=== PATIENT | female | born 1965 | race Caucasian/White ===

== ENCOUNTER 2016-10-10 15:43 | Emergency (ER) ==
[2016-10-10 15:57] VITALS: BP 127/84; TEMP 99.2; BMI 27.3
[2016-10-10] MEDS ORDERED: NORCO 7.5-325 PO STA (16:10)
[2016-10-10] MEDS ORDERED: CLEOCIN PO STA (16:11)
[2016-10-10] MEDS ORDERED: BACTROBAN TP STA (16:12)
--- NOTE | 2016-10-10 16:15 | ED.PDOC ---
General ED Provider: Dr. ONELIA DE LA ROSA-ER Chief Complaint: Finger Pain/Injury Stated Complaint: my fingernail is infected Time Seen by Physician: 15:50 Mode of Arrival: Walk-In Information Source: Patient, Family Exam Limitations: No limitations Primary Care Provider: CRISTINE BURK Nursing and Triage Documentation Reviewed and Agree: Yes Skin Complaint Exam - Skin/Soft Tissue Complaint/Exam Onset/Duration: several days Symptoms Are: Still present Timing: Constant Initial Severity: Mild Current Severity: Moderate Location: left index fingernail Character: Reports: Redness, Swelling, Raised, Painful Aggravating: Reports: Touch Alleviating: Reports: None Associated Signs and Symptoms: Reports: Tenderness, Red streaks. Denies: Fever , Chills, Itching, Drainage, Bruising, Joint swelling Related History: Reports: Similar episode Related Surgical History: Reports: None Recent Exposure to Others w/Similar Symptoms: No Skin Findings: Present: Erythema, Induration, Pustules Joint Tenderness Present: No Differential Diagnoses: Other (paronychia) Review of Systems - Review Of Systems Constitutional: Reports: No symptoms Eyes: Reports: No symptoms Ears, Nose, Mouth, Throat: Reports: No symptoms Respiratory: Reports: No symptoms Cardiac: Reports: No symptoms GI: Reports: No symptoms : Reports: No symptoms Musculoskeletal: Reports: No symptoms Skin: Reports: Lumps Neurological: Reports: No symptoms Endocrine: Reports: No symptoms Hematologic/Lymphatic: Reports: No symptoms All Other Systems: Reviewed and Negative Past Medical History - Past Medical History Endocrine: Reports: Unknown Cardiovascular: Reports: Unknown Respiratory: Reports: Unknown Hematological: Reports: Unknown Gastrointestinal: Reports: Unknown Genitourinary: Reports: Unknown Neuro/Psych: Reports: Unknown Musculoskeletal: Reports: Unknown Cancer: Reports: Unknown Last Menstrual Period: 09/18 - Surgical History General Surgical History: Reports: Unknown - Family History Family History: Reports: Unknown - Social History Smoking Status: Never smoker Hx Substance Use: No Alcohol Screening: None Lives: With family Physical Exam - Physical Exam Appearance: Well-appearing, No pain distress, Well-nourished Pain Distress: Mild Eyes: DARIA, EOMI, Conjunctiva clear ENT: Ears normal, Nose normal, Oropharynx normal Neck: Supple Respiratory: Airway patent, Breath sounds clear, Breath sounds equal, Respirations nonlabored Cardiovascular: RRR, Pulses normal, No rub, No murmur GI/: Soft, Nontender, No masses, Bowel sounds normal, No Organomegaly Musculoskeletal: Normal strength, ROM intact, No edema, No calf tenderness Skin: Warm Neurological: Sensation intact, Motor intact, Reflexes intact, Cranial nerves intact, Alert, Oriented Psychiatric: Affect appropriate, Mood appropriate Procedures - Incision and Drainage Site: left index finger Instrument Used: 15 Blade I & D Procedure: Yes: Betadine Prep, Hibiclens Prep, Sterile drapes applied, Sterile dressing applied Lidocaine Used: No Type of Drainage: Present: Pus, Blood Irrigated: No Progress: patient tolerated procedure well--1.5cc of purulent material removed with relief in symptoms--sterile dressing applied Re-Evaluation - Re-Evaluation Time of Re-Evaluation: 16:18 Status: Improved Vital Signs Stable: Yes Pain Level: 1 Appearance: NAD Lungs: Clear Skin: Warm and Dry Neuro: Alert and Oriented X3 CV: RRR Critical Care Note - Critical Care Note Total Time (mins): 0 Course - Course Orders, Labs, Meds: Orders Category Date Time Status Wound care [ED WOUND CARE] .ONCE EMERGENCY 10/10/16 16:12 Active WOUND CULTURE Stat LAB 10/10/16 16:11 Uncollected Clindamycin HCl [Cleocin] MEDS 10/10/16 16:11 Discontinued 150 mg PO ONCE STA Hydrocodone Bit/Acetaminophen [[place] 7.5-325] MEDS 10/10/16 16:10 Discontinued 1 tab PO ONCE STA Mupirocin [Bactroban] MEDS 10/10/16 16:12 Stat 1 applic TP ONCE STA Medications Discontinued Medications Generic Name Dose Route Start Last Admin Trade Name Jenaroq PRN Reason Stop Dose Admin Acetaminophen/Hydrocodone Bitart 1 tab 10/10/16 16:10 10/10/16 16:16 [place] 7.5-325 PO 10/10/16 16:11 1 tab ONCE STA Administration Clindamycin HCl 150 mg 10/10/16 16:11 10/10/16 16:16 Cleocin PO 10/10/16 16:12 150 mg ONCE STA Administration Mupirocin 1 applic 10/10/16 16:12 10/10/16 16:16 Bactroban TP 10/10/16 16:13 1 applic ONCE STA Administration Vital Signs: Temp Pulse Resp BP Pulse Ox 10/10/16 15:44 99.2 F 103 H 20 127/84 98 Departure - Departure Time of Disposition: 16:18 Disposition: HOME SELF-CARE Discharge Problem: Paronychia of finger Qualifiers: Laterality: left Qualifier Code: (L03.012) Cellulitis of left finger Instructions: Paronychia (ED) Condition: Good Pt referred to PMD for follow-up: Yes Additional Instructions: wash with soap and water twice and apply bactroban ointment till healed-- clindamycin 150mg tid x 7 days--norco 5mg q 4hrs prn pain #10---f/u with pcp next week--return here if any red streaking or fever Allergies/Adverse Reactions: Allergies Penicillins Adverse Reaction (Verified 10/10/16 15:56) Home Medications: Ambulatory Orders Aspirin [Aspirin EC] 325 mg PO DAILY 10/10/16 Buspirone HCl 5 mg PO BID 10/10/16 Cholecalciferol (Vitamin D3) [Vitamin D] 50,000 units PO WEEKLY 10/10/16 Clopidogrel Bisulfate [Clopidogrel] 75 mg PO DAILY 10/10/16 Gabapentin 100 mg PO DAILY 10/10/16 Levetiracetam [Keppra] 1,000 mg PO BID 10/10/16 Simvastatin 20 mg PO DAILY 10/10/16 Zonisamide 100 mg PO DAILY 10/10/16 Disposition Discussed With: Patient, Family
== END 2016-10-10 16:38 | disposition home or self-care (01) ==
LOC: ED 15:43
DX: L03.012 Cellulitis of left finger (principal)
CPT/HCPCS: 87070; 99283

== ENCOUNTER 2016-10-29 16:04 | Outpatient (CLI) ==
[2016-10-29 17:59] LABS: BASOPHILS % (AUTO) 0.7 % (0.0-3.0); EOSINOPHILS # (AUTO) 0.8 K/ul (0.0-0.7); HEMATOCRIT 38.6 % (37.0-47.0); HEMOGLOBIN 12.1 g/dl (12.0-16.0); IMMATURE GRANULOCYTE % (AUTO) 0.2 % (0.0-5.0); LYMPHOCYTES # (AUTO) 1.8 K/uL (0.60-3.4); LYMPHOCYTES % (AUTO) 30.6 (10.0-50.0); MEAN CORPUSCULAR HEMOGLOBIN 25.7 pg (27.0-31.0); MEAN CORPUSCULAR HGB CONC 31.3 (31.8-35.4); MEAN CORPUSCULAR VOLUME 82.1 fl (81.0-99.0); MONOCYTES # (AUTO) 0.6 K/uL (0.4-2.0); MONOCYTES % (AUTO) 10.1 (0-10); NEUTROPHILS # (AUTO) 2.7 K/ul (2.0-6.9); NEUTROPHILS % (AUTO) 45.4; PLATELET COUNT 217 10^3/uL (140-440); WHITE BLOOD COUNT 5.94 K/ul (4.6-10.2)
[2016-10-29 18:20] LABS: BILIRUBIN,URINE Negative (NEGATIVE); KETONES,URINE Negative (NEGATIVE); LEUKOCYTE ESTERASE ,URINE 1+ (NEGATIVE); NITRITE,URINE Positive (NEGATIVE); PROTEIN,URINE Negative (NEGATIVE); URINE, BLOOD Negative (NEGATIVE)
[2016-10-29 18:22] LABS: ALBUMIN 3.7 g/dL (3.4-5.0); ALBUMIN/GLOBULIN RATIO 1.03; ANION GAP 12.9; BILIRUBIN,TOTAL 0.42 mg/dL (0.00-1.20); BUN/CREATININE RATIO 18.91; CALCIUM 8.9 mg/dL (8.2-10.2); CHOL/HDL RATIO 2.6 (4.5-5.5); CREATININE 0.74 mg/dL (0.60-1.30); POTASSIUM 3.9 mmol/L (3.5-5.10); TOTAL PROTEIN 7.3 g/dL (6.4-8.2)
[2016-10-29 18:36] LABS: ADD URINE MICROSCOPIC YES
[2016-10-29 18:37] LABS: BACTERIA,URINE 4+ (NOT PRESENT)
== END 2016-10-29 16:05 | disposition home or self-care (01) ==
LOC: LAB 16:04
PROVIDERS: ATTEND General Practice
DX: Z79.899 Other long term (current) drug therapy (principal); Z79.01 Long term (current) use of anticoagulants
CPT/HCPCS: 36415; 80053; 80061; 81001; 83036; 85025; 87086; 87186

== ENCOUNTER 2016-11-09 16:56 | Outpatient (CLI) ==
[2016-11-09 18:35] LABS: BILIRUBIN,URINE Negative (NEGATIVE); KETONES,URINE Negative (NEGATIVE); LEUKOCYTE ESTERASE ,URINE Trace (NEGATIVE); NITRITE,URINE Positive (NEGATIVE); PROTEIN,URINE Negative (NEGATIVE); URINE, BLOOD Negative (NEGATIVE)
[2016-11-09 18:39] LABS: ADD URINE MICROSCOPIC YES
[2016-11-09 18:40] LABS: BACTERIA,URINE 4+ (NOT PRESENT)
== END 2016-11-09 16:57 | disposition home or self-care (01) ==
LOC: LAB 16:56
PROVIDERS: ATTEND General Practice
DX: R82.90 Unspecified abnormal findings in urine (principal)
CPT/HCPCS: 81001; 87086; 87186

== ENCOUNTER 2017-01-01 11:35 | Outpatient (CLI) | END 2017-01-01 11:36 | disposition home or self-care (01) | LOC: LAB 11:35 | PROVIDERS: ATTEND General Practice | DX: L08.9 Local infection of the skin and subcutaneous tissue, unspecified (principal) | CPT/HCPCS: 87070 ==

== ENCOUNTER 2017-01-04 14:22 | Outpatient (CLI) ==
--- NOTE | 2017-01-04 15:18 | DI ---
EXAM: Two-view left hand two views left finger were performed HISTORY: Local infection of the scan subcutaneous tissue, unspecified COMPARISON: None FINDINGS/IMPRESSION: No fracture or dislocation. Nail of the left second digit not visualized and may be absent. Bandage overlies the distal second digit. Mild scattered osteoarthritis of the hand
== END 2017-01-04 14:23 | disposition home or self-care (01) ==
LOC: RAD 14:22
PROVIDERS: ATTEND General Practice
DX: L08.9 Local infection of the skin and subcutaneous tissue, unspecified (principal); M79.645 Pain in left finger(s)

== ENCOUNTER 2017-04-07 16:03 | Outpatient (CLI) | END 2017-04-07 16:04 | disposition home or self-care (01) | LOC: LAB 16:03 | PROVIDERS: ATTEND General Practice | DX: L02.419 Cutaneous abscess of limb, unspecified (principal) | CPT/HCPCS: 87070 ==

== ENCOUNTER 2017-08-06 13:32 | Outpatient (CLI) | END 2017-08-06 13:33 | disposition home or self-care (01) | LOC: LAB 13:32 | PROVIDERS: ATTEND General Practice | DX: I73.9 Peripheral vascular disease, unspecified (principal); I63.9 Cerebral infarction, unspecified; G45.9 Transient cerebral ischemic attack, unspecified; Z79.899 Other long term (current) drug therapy | CPT/HCPCS: 36415; 80053; 80061; 85025 ==

== ENCOUNTER 2017-08-10 21:51 | Outpatient (CLI) | END 2017-08-10 21:52 | disposition home or self-care (01) | LOC: LAB 21:51 | PROVIDERS: ATTEND General Practice | DX: R74.8 Abnormal levels of other serum enzymes (principal); E55.9 Vitamin D deficiency, unspecified | CPT/HCPCS: 36415; 82306; 84075; 84080 ==

== ENCOUNTER 2017-08-20 07:37 | Outpatient (CLI) ==
--- NOTE | 2017-08-20 10:11 | CT ---
EXAM: CT of the abdomen pelvis with contrast History: Elevated liver enzymes. Technique: Multiplanar CT images through the abdomen pelvis were obtained following administration o f IV and enteric contrast Findings: There is motion artifact. Lung bases are clear. No acute osseous abnormalities. No gallstones identified by CT. The liver is not enlarged. The surface contour of the liver is not nodular and there is no CT evidence for a fatty liver. No focal liver lesions identified. Spleen is unremarkable. A few small simple appearing right renal cysts measuring up to 1 cm. No enhancing josi l masses. Adrenal glands are unremarkable. Pancreas is within normal limits. No dilated loops of b owel. The appendix is normal. No free air. No ascites. Adnexal structures appear normal for patien t's age. No bladder wall thickening. No perirectal inflammation. Scattered colonic stool. No path ologically enlarged lymph nodes. Impression: 1. No acute intra-abdominal or pelvic process. 2. No abnormality of the liver. 3. Small simple right renal cysts
== END 2017-08-20 07:38 | disposition home or self-care (01) ==
LOC: RAD 07:37
PROVIDERS: ATTEND General Practice
DX: R74.8 Abnormal levels of other serum enzymes (principal)

== ENCOUNTER 2017-12-14 10:54 | Outpatient (CLI) | END 2017-12-14 10:55 | disposition home or self-care (01) | LOC: FCC-LAB 10:54 | PROVIDERS: ATTEND General Practice | DX: I63.9 Cerebral infarction, unspecified (principal); G45.9 Transient cerebral ischemic attack, unspecified; E55.9 Vitamin D deficiency, unspecified; Z79.899 Other long term (current) drug therapy | CPT/HCPCS: 36415; 80053; 80061; 82306; 85025 ==

== ENCOUNTER 2018-05-05 14:06 | Outpatient (CLI) | END 2018-05-05 14:07 | disposition home or self-care (01) | LOC: RHC-LAB 14:06 | PROVIDERS: ATTEND General Practice | DX: I63.9 Cerebral infarction, unspecified (principal); R51 Headache; I73.9 Peripheral vascular disease, unspecified; G45.9 Transient cerebral ischemic attack, unspecified; R63.8 Other symptoms and signs concerning food and fluid intake; Z79.899 Other long term (current) drug therapy | CPT/HCPCS: 36415; 80053; 80061; 81001; 85025; 87086 ==

== ENCOUNTER 2018-07-28 11:01 | Outpatient (CLI) | END 2018-07-28 11:02 | disposition home or self-care (01) | LOC: CAR 11:01 | PROVIDERS: ATTEND General Practice | DX: I49.9 Cardiac arrhythmia, unspecified (principal) | CPT/HCPCS: 93005; 93010 ==

== ENCOUNTER 2018-09-07 06:50 | Outpatient (CLI) | END 2018-09-07 06:51 | disposition home or self-care (01) | LOC: LAB 06:50 | PROVIDERS: ATTEND General Practice | DX: I63.9 Cerebral infarction, unspecified (principal); G45.9 Transient cerebral ischemic attack, unspecified; I73.9 Peripheral vascular disease, unspecified | CPT/HCPCS: 36415; 80053; 80061; 81001; 85025; 87086; 87186 ==

== ENCOUNTER 2018-10-18 10:27 | Outpatient (CLI) | END 2018-10-18 10:28 | disposition home or self-care (01) | LOC: CAR 10:27 | PROVIDERS: ATTEND General Practice | DX: I48.91 Unspecified atrial fibrillation (principal) | CPT/HCPCS: 93005; 93010 ==

== ENCOUNTER 2019-03-01 09:38 | Outpatient (CLI) ==
--- NOTE | 2019-03-01 11:40 | MAMMO ---
EXAM: Bilateral digital screening mammogram (2-D and 3-D) History: Screening Comparison: None available. Findings: MLO and CC views of bilateral breast demonstrate scattered fibroglandular breast parenchym a. There are no dominant masses, no suspicious microcalcifications and no architectural distortions Impression: Negative mammogram. Recommend followup routine screening mammography in 1 year. BI-RADS 1, negative
== END 2019-03-01 09:39 | disposition home or self-care (01) ==
LOC: RAD 09:38
PROVIDERS: ATTEND General Practice
DX: Z12.31 Encounter for screening mammogram for malignant neoplasm of breast (principal); R82.90 Unspecified abnormal findings in urine
CPT/HCPCS: 81001; 87086